=== PATIENT | male | born 1990 | race Caucasian/White ===

== ENCOUNTER → 2019-04-04 15:17 | Outpatient (CLI) | payer OTHER, SELFPAY ==
--- NOTE | 2019-04-04 15:20 | DI.RAD.S_ITS ---
PROCEDURE: XR LUMBAR SPINE 2-3V INDICATIONS: low back pain, r/o bony abnormality TECHNIQUE: 3 views of the lumbar spine were acquired. COMPARISON: [facility], CR, XR THORACIC SPINE 3V, 04/04/2019, 15:19. FINDINGS: Bones: 5 nonrib-bearing, lumbar type vertebral bodies are seen. Grade 1 anterolisthesis is seen at the L5-S1 level, with associated bilateral pars defects. There is moderate disc space narrowing seen at L5-S1. End plate irregularity and sclerosis can be seen at this level. The disc heights otherwise appear well-preserved. No suspicious lytic or blastic lesions are seen. No displaced fractures are seen. Soft tissues: Overlying bowel gas pattern is normal. No suspicious soft tissue calcifications. IMPRESSION: Grade 1 anterolisthesis at L5-S1, with associated bilateral pars defects and associated focal premature degenerative change. Dictated by: Efren Francisco M.D. on 04/04/2019 at 15:41 Approved by: Efren Francisco M.D. on 04/04/2019 at 15:43
--- NOTE | 2019-04-04 15:20 | DI.RAD.S_ITS ---
PROCEDURE: XR THORACIC SPINE 3V INDICATIONS: low back pain, r/o bony abnormality TECHNIQUE: 3 views of the thoracic spine were acquired. COMPARISON: [facility], CR, XR LUMBAR SPINE 2-3V, 04/04/2019, 15:19. FINDINGS: Bones: No fractures or dislocations. No suspicious bony lesions. 12 pairs of ribs are noted, and appear intact where visualized. Soft tissues: No paravertebral stripe thickening. IMPRESSION: Normal plain films. Dictated by: Efren Francisco M.D. on 04/04/2019 at 15:40 Approved by: Efren Francisco M.D. on 04/04/2019 at 15:41
== END ==
PROVIDERS: Referring Provider Physician Assistant; Visit Provider Physician Assistant
DX: M54.5 Low back pain (principal); M54.9 Dorsalgia, unspecified; M43.17 Spondylolisthesis, lumbosacral region
CPT/HCPCS: 72072; 72100